=== PATIENT | female | born 1935 | race Caucasian/White ===

== ENCOUNTER 2018-06-16 09:50 | Emergency (ER) | payer OTHER ==
[~2018-06-16] VITALS: Ht 157.5 cm; Wt 49.0 kg
[2018-06-16 10:22] LABS: HEMATOCRIT 34.2 % (37.0-47.0); HEMOGLOBIN 11.4 gm/dL (12.0-15.0); MCHC 33.3 g/dL (28.0-37.0); MCV 93.1 fL (80.0-100.0); PLATELET COUNT 372 thou/uL (150-400); RBC 3.68 mil/uL (4.20-5.00); RDW 13.5 % (10.5-14.5); WBC 9.2 thou/uL (4.0-11.0)
[2018-06-16 10:32] LABS: ANION GAP 9 mmol/L (7-16); BUN 21 mg/dL (7-18); CALCIUM 9.5 mg/dL (8.5-10.1); CHLORIDE 102 mmol/L (98-107); CO2 28 mmol/L (21-32); GLUCOSE 108 mg/dL (74-106); SODIUM 139 mmol/L (136-145)
[2018-06-16 10:42] LABS: ALBUMIN 3.6 g/dL (3.4-5.0); SGOT 20 U/L (15-37); SGPT 18 U/L (30-65); TOTAL BILIRUBIN 0.3 mg/dL (<0.1-1.0); TOTAL PROTEIN 7.2 g/dL (6.4-8.2); TROPONIN-I <0.06 ng/mL (<0.06)
[2018-06-16] MEDS ORDERED: GABAPENTIN 100100 MG PO (10:42)
[2018-06-16] MEDS ORDERED: NORCO 5-325 TA1 EACH PO (10:43)
[2018-06-16] MEDS ORDERED: LOSARTAN POTAS100 MG PO (10:43)
[2018-06-16] MEDS ORDERED: NAMENDA 10 MG T10 MG PO (10:44)
[2018-06-16] MEDS ORDERED: MOBIC7.5 MG PO (10:44)
[2018-06-16] MEDS ORDERED: TYLENOL EXTRA500 MG PO (10:50)
[2018-06-16] MEDS ORDERED: OMEPRAZOLE20 M1 PO (11:39)
[2018-06-16 11:58] VITALS: BP 139/89
--- NOTE | 2018-06-16 18:58 | EKG ---
[address] [place] [address] ELECTROCARDIOGRAM REPORT Name: KEMAL MONTILLA Room #: DEP SILVA Downing#: [id number] ������������������ Admission: 06/16/18 ������������������ Attend Phys: Discharge: 06/16/18 ������������������ Date of : 35 Report #: [id number] ����������������������������������������������������������������� [id number] THIS REPORT FOR: //name// [facility] ED Test Date: 2018-06-16 Test Time: 10:04:05 Pat Name: KEMAL MONTILLA Department: Room: Gender: F Digital Traffic Coordinator: : 1935 Requested By: River Mosley Order Number: [id number] MD: Jadon Bonilla Measurements Intervals [place] Rate: 58 P: 9 NH: 161 QRS: -65 QRSD: 149 T: 33 QT: 464 QTc: 456 Interpretive Statements Sinus rhythm Right bundle branch block LAD Non specific ST/T wave changes No previous ECG available for comparison Electronically Signed On 06-16-2018 18:58:12 CDT by Jadon Bonilla [email or web address] ��������������������������������������������� <ELECTRONICALLY SIGNED> ���������������������������������������� By: Jadon Bonilla MD ��������������������������������������������� 06/16/18 1858 1004 [facility] Jadon Bonilla MD /KATHLEEN
== END 2018-06-16 12:20 | disposition home or self-care (01) ==
LOC: ER 09:50
PROVIDERS: Physician Assistant
DX: R13.10 Dysphagia, unspecified (principal); Z88.6 Allergy status to analgesic agent; Z85.89 Personal history of malignant neoplasm of other organs and systems

== ENCOUNTER 2018-10-17 17:17 | Inpatient (IN) | payer OTHER ==
[~2018-10-17] VITALS: Ht 160 cm; Wt 47.0 kg
--- NOTE | ~2018-10-17 | HC ---
[facility] [place] [address] CONSULTATION Name: KEMAL MONTILLA Room #: 359-P ADM IN M.R.#: [id number] Admission: 10/17/18 Attend Phys: Emily Moran MD Discharge: Date of : 35 Report #: [id number] THIS REPORT FOR: //name// CC: Dayana Moran DATE OF SERVICE: 10/18/2018 HISTORY OF PRESENT ILLNESS: This is an 83-year-old female patient who was seen by me because of facial droop noticed this morning. The is the one who provided history and he indicated that she never had any episodes of TIAs in the past. He thinks the patient has returned back to her baseline. This patient received some epidurals and had some weakness in the legs and that was the reason for admission. There is not any facial weakness now, it came spontaneously and looks like it has resolved spontaneously. REVIEW OF SYSTEMS: Indicates that she has dementia. She follows up at [facility] for that. It is not clear what workup she had. She does not have any short term memory. She needs supervision and somebody needs to be with her all the time. She is admitted with UTI at this time. A 14-point review of system was carried out. It is difficult to carry out because of the patient's dementia. The patient denies any new eye, ENT, cardiac, respiratory, dermatological, hematological, psychiatric, throat, allergic symptom associated with present symptomatology. She does have issues and she does have significant musculoskeletal problems that is mostly in the lumbar spine. PAST MEDICAL HISTORY: Positive for the lumbar spine problem and what looks like advanced dementia. FAMILY HISTORY: Negative for early age stroke. SOCIAL HISTORY: She is and is the one who provided most of the history. PHYSICAL EXAMINATION: Indicate she is alert. She is responsive. She does not know what month it is. Cranial nerve examination 2-12 looks mostly unremarkable. Right facial may be somewhat less as compared to the left side. does not think there is any difference, so if it is, it may be longstanding. Rest of the cranial nerve examinations appears unremarkable. She moves all 4 extremities. She is somewhat weak. Her position sense appeared to be present. Reflexes are diminished. They indicate that she also has a neuropathy. Tone looks symmetrical. There is no clear cerebellar sign. I could not look at the patient's fundus. There is no meningeal sign. Cardiac examinations appear unremarkable. No respiratory difficulty. The patient is [facility] [address] [place] [address] CONSULTATION Name: KEMAL MONTILLA Room #: 359-P [facility] IN [facility].#: [id number] Admission: 10/17/18 Attend Phys: Emily Moran MD Discharge: Date of : 35 Report #: [id number] very thin. No thyroid mass was noticed. Blood pressure is 146/83, respirations 19, pulse is 55. LABORATORY DATA: Indicate a white count of 7.3. Sodium is normal. IMPRESSION: The patient with history of facial droop, which appeared to be better, and according to the , the patient is her baseline. She probably has some encephalopathy because of urinary tract infection in addition to dementia. I discussed with the patient that we will work up for TIA and we will start the patient on aspirin. We will check a cholesterol, and we will see if we need to do anything else. Patient's wants to follow this plan. Dr. Dent will follow up this patient with you from tomorrow. By: 1824 0225 Slim Cunningham MD /nt
[~2018-10-17 17:17] MED LIST: GABAPENTIN 100100 MG PO; LOSARTAN POTAS100 MG PO; MOBIC7.5 MG PO; NAMENDA 10 MG T10 MG PO; NORCO 5-325 TA1 EACH PO; OMEPRAZOLE20 M1 PO; TYLENOL EXTRA500 MG PO
[2018-10-17 17:20] VITALS: BP 148/77
[2018-10-17 18:25] LABS: URINE BILIRUBIN NEGATIVE (Negative); URINE BLOOD TRACE (Negative); URINE CLARITY HAZY; URINE COLOR YELLOW; URINE GLUCOSE-RANDOM* NEGATIVE (Negative); URINE KETONES NEGATIVE (Negative); URINE LEUKOCYTES-REFLEX 3+ (Negative); URINE NITRITE-REFLEX NEGATIVE (Negative); URINE PROTEIN (DIPSTICK) NEGATIVE (Negative); URINE SPECIFIC GRAVITY <= 1.005 (1.005-1.035); URINE UROBILINOGEN 0.2 E.U./dl (0.2-1.0)
[2018-10-17 18:30] LABS: SQUAMOUS 4-10 Moderate /LPF (0-3)
[2018-10-17 18:31] LABS: URINE WBC-REFLEX >25 Many /HPF (0-5)
[2018-10-17 18:32] LABS: BACTERIA-REFLEX >30 Many /HPF (None Seen); RENAL EPITHELIAL CELLS 0-3 Few /LPF (None Seen); TRANSITIONAL EPITHEL CELL 0-3 Few /LPF (None Seen); WBC CLUMPS Few (None Seen)
[2018-10-17 18:33] LABS: CASTS None Seen /LPF (None Seen); CRYSTALS None Seen /LPF (None Seen); URINE RBC 0-2 Rare /HPF (0-2)
[2018-10-17 18:57] LABS: ABSOLUTE NEUTROPHILS 5.4 thou/uL (1.4-8.2); BASOPHILS 0.7 % (0.0-2.0); EOSINOPHILS 0.5 % (0.0-3.0); HEMOGLOBIN 11.7 gm/dL (12.0-15.0); LYMPHOCYTES 14.3 % (24.0-44.0); MCH 32.7 pg (26.0-34.0); MCHC 34.4 g/dL (28.0-37.0); MCV 95.2 fL (80.0-100.0); MONOCYTES 9.8 % (1.0-8.0); PLATELET COUNT 240 thou/uL (150-400); POLYS 74.7 % (36.0-66.0); RBC 3.57 mil/uL (4.20-5.00); RDW 13.5 % (10.5-14.5); WBC 7.3 thou/uL (4.0-11.0)
[2018-10-17 19:04] LABS: ANION GAP 6 mmol/L (7-16); BUN 24 mg/dL (7-18); CALCIUM 9.6 mg/dL (8.5-10.1); CHLORIDE 99 mmol/L (98-107); CO2 30 mmol/L (21-32); CREATININE 0.9 mg/dL (0.6-1.0); GLUCOSE 99 mg/dL (74-106); POTASSIUM 3.7 mmol/L (3.5-5.1); SODIUM 135 mmol/L (136-145)
[2018-10-17 19:23] LABS: TROPONIN-I <0.06 ng/mL (<0.06)
[2018-10-17] MEDS ORDERED: NORCO 5-325 TA1 EAC1 PO (20:54)
[2018-10-17] MEDS ORDERED: IRON325 PO (20:55)
[2018-10-17 21:45] VITALS: BP 140/76
[2018-10-17 21:59] VITALS: BP 158/74
[2018-10-17 22:29] VITALS: BP 151/71
[2018-10-18 03:30] VITALS: BP 167/73
--- NOTE | 2018-10-18 06:01 | NUR ---
RECEIVED REPORT FROM JOHN ED RN.PT ARRIVED TO ROOM 463 ACCOMPANIED BY HER AROUND 2215.PT ALERT,CONFUSED AND WEAK BUT ABLE TO ANSWER SOME QUESTIONS.DENIES PAIN AND SOB.PLACED ON PUREWICK EXTERNAL CATHETER.VOIDED. DENIES ANY NEEDS AT THIS TIME. IS IN THE ROOM WITH THE PT.WILL MONITOR AND CONTINUE POC.
[2018-10-18 07:22] LABS: CALCIUM 8.9 mg/dL (8.5-10.1); CREATININE 0.9 mg/dL (0.6-1.0); POTASSIUM 3.7 mmol/L (3.5-5.1)
[2018-10-18 08:00] VITALS: BP 138/66
--- NOTE | 2018-10-18 13:46 | NUR ---
PT A&O TO SELF, VSS, CHRONIC PAIN IN BACK, USING FACES SCALE TO RATE. PATIENT HAS AT BEDSIDE. PATIENT HAS SLIGHT RIGHT SIDED WEAKNESS, FACIAL DROOPING AND DROOLING. WHEN PATIENT SMILES FACE IS SYMMETRICAL. DR IS AWARE AND PATIENT BEING TRANSFERED TO , WHERE SHE WILL HAVE TELE MOITORING. AN ORDER ALSO HAS BEEN GIVEN FOR CT SCAN OF HEAD. ALL BELONGINGS SENT DOWN TO . NO SIGNS OF DISTRESS.
[2018-10-18 15:28] VITALS: BP 146/83
[2018-10-18 15:54] VITALS: BP 146/83
--- NOTE | 2018-10-18 17:00 | NUR ---
pt's assesment has done, pt come from for R side weak and slight facial droop, pt's head CT done, results show : no acute intractranial abnormality, pt is A&OX2 ( person and place), pt can floow commands, but pt is forgetful, pt's vs are stable at this time, pt denies pain and sob , pt's family stay at pt's bedside.
[2018-10-18 19:35] VITALS: BP 131/71
--- NOTE | 2018-10-19 02:02 | NUR ---
NO NIH ORDERED. CT (-), MRI OF SPINE. COMPLETE NURSING INTERVENTION. BETTYM.
--- NOTE | 2018-10-19 03:08 | NUR ---
PATIENT IS ALERT TO SELF AND SITUATION. NIH IS 2 FOR MINOR FACAL DROOP AND INABILITY TO FOLLOW DIRECTIONS. PATIENT HAS A HX OF DEMENTIA. PATIENT HAD A EPIDURAL BEFORE ADMITION AND CAN DUE TO DIFFICULTY WALKING AND A UTI. PATIENT IS GETTING ANTIBIOTICS. PATIENT IS ROOMAIR. TIMES ONE ASSIST TO BSC. PATIENT IS RESTING COMFORTABLY IN BED. DENIES PAIN. PATIENT IS PROGRESSING TO GOALS. WCM.
[2018-10-19 03:48] VITALS: BP 128/65
[2018-10-19 05:55] LABS: CHOLESTEROL 227 mg/dL (<200); HDL CHOLESTEROL 47 mg/dL (>40); LDL CHOLESTEROL 157 mg/dL (<100); SERUM ASSESSMENT Clear; TC:HDL 4.8 Ratio (Not establshd); TRIGLYCERIDE 118 mg/dL (<150); VLDL 24 mg/dL (<40)
[2018-10-19 06:39] LABS: TSH 3.315 uIU/mL (0.358-3.740)
[2018-10-19 07:24] VITALS: BP 148/74
--- NOTE | 2018-10-19 10:02 | NUR ---
ASSESSMENT: CM REVIEWED CHART AND MET WITH PATIENT AND HER AT THE BEDSIDE. PT WAS ADMITTED WITH UTI/WEAKNESS. PT REPORTS SHE LIVES [place] AN [place] WITH HER AT [facility]. THERE ARE NO STEPS TO ENTER OR ONCE INSIDE. PT REPORTS USING A CANE FOR AMBULATION BUT ALSO HAS A WALKER. PT DENIES HAVING HH IN THE PAST OR BEING TO A SNF. PT REPORTS BEING INDEPENDENT WITH ADLS AND HAS A GRAB BAR AND SHOWER CHAIR. CM DISCUSSED ROLE. PHYSICAL THERAPY IS RECOMMENDING POST ACUTE CARE. 5N HAS BEEN CONSULTED. PT AND ARE INTERESTED IN 5N IF PT QUALIFIES THEIR FIRST CHOICE DISCHARGE PLAN. AWAITING ON INPUT FROM [facility] AT THIS TIME. CM ALSO NOTIFIED BROOKS TINEO FROM [facility] OF PATIENTS ADMISSION. CM WILL CONTINUE TO FOLLOW TO ASSIST NEEDED. NO WEEKEND DISCHARGE ANTICIPATED AT THIS TIME.
[2018-10-19 11:37] VITALS: BP 157/74
--- NOTE | 2018-10-19 14:29 | NUR ---
ASSUMEED CARE OF PT AT 0700 THIS SHIFT. PT HAS BEEN COOPERATIVE, HAS DENIED ANY PAIN THIS SHIFT. HEAD CT SHOWS INFARCT, AND PT HAS SOME RIGHT SIDED WEAKNESS, HOWEVER PT HAS MODERATE STRENGTH. PT HAD REHAB CONSULT, CURRENTLY WAITING ON INSURANCE FOR REHAB APPROVAL. PT IS CURRENTLY RESTING COMFORTABLY IN ROOM. EDUCATION WAS PROVIDED, PT HAS HAD SPOUSE IN ROOM THIS SHIFT. PLAN OF CARE IS TO CONTINUE TO MONITOR CLOSELY AT THIS TIME.
--- NOTE | 2018-10-19 15:12 | NUR ---
AUTHORIZATION FOR ACUTE REHAB STAY SUBMITTED THIS DATE TO PATIENT'S INSURANCE. PATIENT WILL ADMIT TO REHAB WHEN/IF AUTHORIZATION IS RECEIVED. THANK YOU FOR THIS REFERRAL.
[2018-10-19 17:15] VITALS: BP 170/95
--- NOTE | 2018-10-19 17:55 | EKG ---
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 : 1935 Requested By: Anibal Richter Order Number: [id number] MD: Osmra Clifton Measurements Intervals [place] Rate: 52 P: 0 CA: 181 QRS: -59 QRSD: 150 T: 0 QT: 481 QTc: 448 Interpretive Statements Sinus rhythm Right bundle branch block Possible inferior infarct, old Compared to ECG 06/16/2018 10:04:05 No significant change was found Electronically Signed On 10-19-2018 17:55:26 CDT by Osmar Clifton [email or web address] <ELECTRONICALLY SIGNED> By: Osmar Clifton MD, [facility] 10/19/18 1755 1855 54 Osmar Clifton MD, FAC /EPI
[2018-10-19 19:36] VITALS: BP 144/90
[2018-10-20] VITALS (8 sets, daily range): BP systolic 134–160; BP diastolic 77–96
--- NOTE | 2018-10-20 02:26 | NUR ---
patient is alert to self. patient is calm. patient has mild ataxia, right arm weakness. nih 3. patient is sinus jose. patients lbm was the 14th. patient is on antibiotic for uti. patient is pending rehab today. patient deneis pain. patient is room air. patient is resting comfortably in bed wcm. patient is progressing to goals.
--- NOTE | 2018-10-20 16:05 | NUR ---
FALL NOTE: 1. FALL NOT WITNESSED - FOUND PATIENT IN BATHROOM FLOOR. PATIENT STATES CRAWLED FROM BED TO BATHROOM. 2. PATIENT CONFUSED - DEMENTIA 3. NO INJURY 4. MARJARA NOTIFIED 5. NOTIFIED.
--- NOTE | 2018-10-20 20:31 | NUR ---
PATIENT ORIENTED TO SELF AND LOCATION. UNABLE TO REMEMBER YEAR OF . AT BEDSIDE AND PATIENT TEARFUL IF LEAVES. REQUEST TO DISCHARGE WITH PT AND OT TO [facility] SO EASIER TO TRANSITION TO THE RESIDENCE AND CLOSER FOR THE . NOTIFIED CONTACT MANAGER NURSE OF THE HUSBANDS REQUEST. APPARENTLY STILL PENDING INSURANCE APPROVAL FOR [facility], BUT PREFERS TO GET REHAB AT [facility] FOR ABOVE STATED REASON.
[2018-10-21 03:55] VITALS: BP 147/82
--- NOTE | 2018-10-21 04:50 | NUR ---
Progressing towards outcome goals. High fall risks, fall precautions in place. Vital signs and rhythm stable. DC to Rehab pending rehab approval.
[2018-10-21 07:35] VITALS: BP 149/89
[2018-10-21] MEDS ORDERED: LIPITOR40 MG PO (09:52)
[2018-10-21] MEDS ORDERED: ASPIR 8181 MG PO (09:53)
[2018-10-21 11:47] VITALS: BP 151/79
[2018-10-21 15:17] VITALS: BP 160/88
--- NOTE | 2018-10-21 17:08 | NUR ---
ASSUMED CARE AT SHIFT CHANGE, ALERT TO SELF AND FORGETFUL. BP IN 161-141/79-89. PATIEN DENIES ANY DISCOMFORT AT THIS TIME. PREGRESSING TWARDS GOALS AND TRISTAN CONTNUE WITH POC.
[2018-10-21 20:15] VITALS: BP 174/91
--- NOTE | 2018-10-22 05:26 | NUR ---
pt resting quietly with spouse at bedside offering support, vss, prn pain med scheduled, remains alert to self, ra with sat 96%, will con't to monitor per ppoc.
[2018-10-22 05:46] VITALS: BP 146/79
[2018-10-22 07:44] VITALS: BP 157/88
[2018-10-22] MEDS ORDERED: CEFUROXIME250 MG PO (09:01)
[2018-10-22 11:29] VITALS: BP 154/89
--- NOTE | 2018-10-22 15:09 | NUR ---
ASSUMED PATIENT CARE AT 0700. A/0 TO SELF. RIGHT SIDE WEAKNESS. UP WITH ASSISTED TO [facility]. DC TO [facility].
== END 2018-10-22 15:11 | DRG 64 ==
LOC: ER 17:17 → EROBS 19:53 → 4W 19:53 → 3W 19:53 → 4W 22:07 → 3W 10-18 14:19
PROVIDERS: Emergency Medicine; Nurse Practitioner Family; Psychiatry & Neurology Neuromuscular Medicine; ADMIT Internal Medicine
DX: I63.9 Cerebral infarction, unspecified (principal); G92 Toxic encephalopathy; N39.0 Urinary tract infection, site not specified; E44.0 Moderate protein-calorie malnutrition; Z68.1 Body mass index [BMI] 19.9 or less, adult; G81.91 Hemiplegia, unspecified affecting right dominant side; M62.84 Sarcopenia; M48.061 Spinal stenosis, lumbar region without neurogenic claudication; R29.810 Facial weakness; I10 Essential (primary) hypertension; D64.9 Anemia, unspecified; G62.9 Polyneuropathy, unspecified; F03.90 Unspecified dementia, unspecified severity, without behavioral disturbance, psychotic disturbance, mood disturbance, and anxiety; M53.80 Other specified dorsopathies, site unspecified; Z87.891 Personal history of nicotine dependence; Z79.899 Other long term (current) drug therapy; Z88.8 Allergy status to other drugs, medicaments and biological substances
CPT/HCPCS: 10040; 10080

== ENCOUNTER 2018-11-15 07:35 | Inpatient (IN) | payer OTHER ==
[~2018-11-15] VITALS: Ht 160 cm; Wt 45.5 kg
[2018-11-15 07:35] VITALS: BP 143/79
[~2018-11-15 07:35] MED LIST changes: +ASPIR 8181 MG PO; +CEFUROXIME250 MG PO; +IRON325 PO; +LIPITOR40 MG PO; +NORCO 5-325 TA1 EAC1 PO
[2018-11-15 08:20] LABS: HEMATOCRIT 26.3 % (37.0-47.0); HEMOGLOBIN 8.8 gm/dL (12.0-15.0); MCH 32.4 pg (26.0-34.0); MCHC 33.5 g/dL (28.0-37.0); MCV 96.5 fL (80.0-100.0); PLATELET COUNT 211 thou/uL (150-400); RBC 2.73 mil/uL (4.20-5.00); RDW 12.9 % (10.5-14.5); WBC 4.3 thou/uL (4.0-11.0)
[2018-11-15 08:32] LABS: ANION GAP 7 mmol/L (7-16); BUN 28 mg/dL (7-18); CALCIUM 8.7 mg/dL (8.5-10.1); CHLORIDE 105 mmol/L (98-107); CO2 28 mmol/L (21-32); GLUCOSE 87 mg/dL (74-106); POTASSIUM 4.2 mmol/L (3.5-5.1); SODIUM 140 mmol/L (136-145)
[2018-11-15 08:40] LABS: APTT 28.5 Seconds (24.5-32.8); PROTIME 10.6 Seconds (9.3-11.4)
[2018-11-15 08:41] LABS: ALBUMIN 2.6 g/dL (3.4-5.0); MAGNESIUM 1.8 mg/dL (1.8-2.4); SGOT 25 U/L (15-37); SGPT 21 U/L (30-65); TOTAL BILIRUBIN < 0.1 mg/dL (<0.1-1.0); TROPONIN-I <0.06 ng/mL (<0.06)
[2018-11-15 08:48] LABS: URINE BILIRUBIN NEGATIVE (Negative); URINE BLOOD NEGATIVE (Negative); URINE CLARITY CLEAR; URINE COLOR YELLOW; URINE GLUCOSE-RANDOM* NEGATIVE (Negative); URINE KETONES NEGATIVE (Negative); URINE LEUKOCYTES-REFLEX NEGATIVE (Negative); URINE NITRITE-REFLEX NEGATIVE (Negative); URINE PROTEIN (DIPSTICK) NEGATIVE (Negative); URINE SPECIFIC GRAVITY <= 1.005 (1.005-1.035); URINE UROBILINOGEN 0.2 E.U./dl (0.2-1.0)
[2018-11-15 08:56] LABS: BARBITURATES Negative (Negative); BENZODIAZEPINES Negative (Negative); COCAINE Negative (Negative); METHADONE Negative (Negative); OPIATES Negative (Negative); PCP Negative (Negative)
--- NOTE | 2018-11-15 09:04 | EKG ---
[facility] [place] [address] ELECTROCARDIOGRAM REPORT Name: KEMAL MONTILLA [facility] [id number] ������������������ Admission: 11/15/18 ������������������ Attend Phys: Discharge: ������������������ Date of : 35 Report #: [id number] ����������������������������������������������������������������� [id number] THIS REPORT FOR: //name// [facility] ED Test Date: 2018-11-15 Test Time: 08:28:58 Pat Name: KEMAL MONTILLA Department: Room: Gender: F Header Dock: : 1935 Requested By: Johnson Youssef Order Number: [id number] MD: Osmar Clifton Measurements Intervals [place] Rate: 60 P: -32 CA: 150 QRS: -69 QRSD: 162 T: 74 QT: 511 QTc: 511 Interpretive Statements Sinus rhythm RBBB and LAFB Compared to ECG 10/17/2018 18:55:58 No significant change was found Electronically Signed On 11-15-2018 9:04:35 CDT by Osmar Clifton [email or web address] ��������������������������������������������� <ELECTRONICALLY SIGNED> ���������������������������������������� By: Osmar Clifton MD, [facility] ��������������������������������������������� 11/15/18903 08 08 Osmar Clifton MD, FACC /EPI
[2018-11-15 09:07] LABS: AMP/METHAMP Negative (Negative)
[2018-11-15 09:51] LABS: ANISOCYTOSIS SLIGHT
[2018-11-15 10:30] VITALS: BP 154/73
--- NOTE | 2018-11-15 10:33 | NUR ---
CALLED GIOVANNY IN CCU AND LET THEM KNOW THAT PT NEEDS A GOLD AND PURPLE TOP AND THAT I WAS UNABLE TO OBTAIN DUE TO PT BEING IN MRI. NURSE IS AWARE.
[2018-11-15 10:45] VITALS: BP 139/68
[2018-11-15 10:51] LABS: % SATURATION 23 % (20-39); IRON 39 ug/dL (50-170); TIBC 168 ug/dL (250-450)
[2018-11-15 11:40] LABS: HEMATOCRIT 31.8 % (37.0-47.0); HEMOGLOBIN 10.7 gm/dL (12.0-15.0)
[2018-11-15] MEDS ORDERED: LIPITOR80 MG PO (16:28)
[2018-11-15] MEDS ORDERED: ASPIRIN325 PO (16:30)
[2018-11-15] MEDS ORDERED: ARICEPT 5 MG TAB5 MG PO (16:31)
--- NOTE | 2018-11-15 17:05 | NUR ---
ASSUMED PT CARE AT APPROXIMATELY 1030. FALL PRECAUTIONS IN PLACE. PT IS INCOMPREHENSABLE AND DROWSY. CAN NOT ACCURATELY ASSESS LOC. PT'S AT BEDSIDE. HAS BEEN ANSWERING QUESTIONS REGAURDING PT'S MED HX. ASSESSMENT CHARTED. PT'S VITAL SIGNS ARE STABLE. PT IS IN NO APPARENT PAIN. PT HAD CT, MRI, AND SCHEDULED FOR EEG TODAY. PT ALSO RECEIVED A SWALLOW STUDY TODAY. PT IS INCONTINENT OF URINE AT TIMES. STARTED FEMALE EXTERNAL CATH BUT PT CONT TO PULL OUT. PT DOES NOT HAVE FEMALE EXTERNAL CATH. WAITING FOR BM TO DO OCCULT TEST- PT HAS NOT HAD A BM TODAY. PT BEDREST CURRENTLY FOR WEAKNESS. PT'S STATES SHE USUALLY USES A WALKER AT HOME. PT TURNED Q2 HOURS. PROVIDING FREQUENT ORIENTATION TO PATIENT.
--- NOTE | 2018-11-15 18:46 | NUR ---
PT IS ALERT TO HERSELF. PT'S EYE OPENING HAS INCREASED. STATES PT'S DEMENTIA BASELINE IS ALERT TO HERSELF. ALSO STATES PT'S VERBAL BASELINE IS VERY CONVERSATIONAL. PT IS STILL INCOMPREHENSABLE AT THIS TIME. WILL CONTINUE TO MONITOR.
[2018-11-15 19:21] VITALS: BP 127/68
[2018-11-15 21:54] VITALS: BP 119/71
[2018-11-15 23:52] VITALS: BP 117/67
--- NOTE | 2018-11-16 03:35 | NUR ---
RECEIVED PT'S CARE AT 1910; PT. ON BED; RESTING WITH EYES CLOSED; SPOUSE AT THE BED SIDE; DURING ASSESSMENT PT. RESTING; SLEEP INTERRUMPTED; ANSWERED BACK AFTER CALLING PT'S NAME; COOPERATIVE; FOLLOW COMMANDS; HS MEDICATION GIVEN; PT'S HR EARLY ON THE NIGHT SR; LATER ON THE NIGHT SB; 143-152s; VS WNL; PT. RESTING; NO C/O SOB; RESPIRATIONS 16; MONITORING; TURNED FROM SIDE TO SIDE THROUGH THE NIGHT; NO NEURO CHANGES NOTICED SINCE FIRST ASSESSMENT; MONITORING; ASSESSMENT CHARGED; FOLLOWING POC; WILL PASS ON REPORT.
[2018-11-16 04:00] VITALS: BP 126/60
[2018-11-16 05:34] LABS: HEMATOCRIT 30.3 % (37.0-47.0); HEMOGLOBIN 10.2 gm/dL (12.0-15.0); MCH 32.5 pg (26.0-34.0); MCHC 33.5 g/dL (28.0-37.0); RBC 3.12 mil/uL (4.20-5.00); RDW 12.9 % (10.5-14.5); WBC 4.2 thou/uL (4.0-11.0)
[2018-11-16 05:52] LABS: CALCIUM 9.2 mg/dL (8.5-10.1); CREATININE 0.8 mg/dL (0.6-1.0); POTASSIUM 3.7 mmol/L (3.5-5.1)
[2018-11-16 08:50] VITALS: BP 160/60
--- NOTE | 2018-11-16 10:09 | NUR ---
CONFUSED, AGRESSIVE. AT BEDSIDE EDUCATED ABOUT FALL PRECAUTIONS; HE INSISTS ON TURNING OFF THE BED ALARM. ASSISTED TO BSC FOR FORMED BM, WHICH PROVED TO BE POSITIVE FOR OCCULT BLOOD. VERY FREQUENT CHECKS D/T FALL RISK. WILL CONTINUE TO MONITOR.
[2018-11-16 15:46] VITALS: BP 160/60
--- NOTE | 2018-11-16 15:55 | NUR ---
Case opened to follow for dc planning. Double Bass Player visited with the pt and spouse at bedside. They live in the [facility] apts at [facility] and she has hh per [facility] for nursing and therapy. She was here last month with a stroke and when to the SNF there for 2 weeks before returning to their apt with HH. She was walking with a rwalker and sba. Spouse takes care of the homemaker services and meals and housekeeping are provided per [facility]. Pt is being seen by therapy. They are recommending another snf stay at this time. Referral faxed to [facility] with request to submit for ins auth as the pt may be dc ready tomorrow. Once the pt is able to dc home they would like to resume services with [facility]. Will follow.
[2018-11-16 16:53] VITALS: BP 178/72
--- NOTE | 2018-11-16 17:27 | NUR ---
FAXED REFERRAL TO [facility] SPOKE WITH DANA IN ADM SHE RECEIVED REFERRAL AND WILL SUBMIT FOR AUTH. DCP TO FOLLOW.
--- NOTE | 2018-11-16 19:34 | NUR ---
ASSUMED CARE AT 1300, SHIFT ASSESSMENT DONE, NPO SINCE LAST NIGHT. WAS SEEN BY SPEECH THERAPHY, GOT AN ORDER FOR A MECHANICAL ALTERED DIET. HOME MEDS WILL HAS BEEN RESUMED. WILL TURN BED ALARM OFF AND GET THE PT UP TO BSC, EDCUATED ABOUT CALLING FOR HELP. HAD A BM TODAY. WILL CONTINUE TO ASSESS AND ASSIST WITH ADLs NEEDED.
[2018-11-16 20:12] VITALS: BP 131/74
--- NOTE | 2018-11-17 04:15 | NUR ---
ASSUMED PT CARE AT 1900. PT AT BEDSIDE. VSS AND PT HAS BEEN SB THROUGHOUT NIGHT. PT NEEDS ASSISTANCE X1 WHEN AMBULATING SHE IS UNSTEADY AND WEAK. PT HAS SLEPT THRU NIGHT. WILL CONTINUE TO MONITOR PER POC.
[2018-11-17 05:20] LABS: HEMATOCRIT 30.2 % (37.0-47.0); HEMOGLOBIN 10.2 gm/dL (12.0-15.0); MCH 32.3 pg (26.0-34.0); MCHC 33.9 g/dL (28.0-37.0); MCV 95.3 fL (80.0-100.0); RBC 3.17 mil/uL (4.20-5.00); RDW 13.1 % (10.5-14.5); WBC 4.7 thou/uL (4.0-11.0)
[2018-11-17 05:40] VITALS: BP 158/62
[2018-11-17 06:11] LABS: TSH 4.554 uIU/mL (0.358-3.740)
[2018-11-17 07:39] VITALS: BP 136/68
--- NOTE | 2018-11-17 11:11 | NUR ---
CALM, COOPERATIVE. AT BEDSIDE. TRANSFERRING TO [facility] TODAY. WILL CONTINUE TO FOLLOW.
[2018-11-17 16:11] VITALS: BP 157/65
--- NOTE | 2018-11-17 16:57 | NUR ---
Pt transferred to unit from 3W aprox 1530. Pt alert and oriented to self. Pt's spouse at bedside. Denies pain. Room air. Fall precautions in place.
--- NOTE | 2018-11-17 17:08 | HC ---
[facility] [place] [address] CONSULTATION Name: KEMAL MONTILLA Room #: 419-P ADM IN M.R.#: [id number] Admission: 11/15/18 ������������������ Attend Phys: Champ Terry MD Discharge: ������������������ Date of : 35 Report #: [id number] THIS REPORT FOR: //name// CC: Champ Dumont DATE OF SERVICE: 11/15/2018 HISTORY OF PRESENT ILLNESS: This is an 83-year-old female patient who was seen by me for possibility of stroke. I had seen this patient recently and she did have a stroke. The last seen well was yesterday, but this morning she came and her speech was markedly altered. It is always difficult in this patient to tell because this patient has an underlying dementia. The is with her and I have talked to the in the past and talked to them again today. REVIEW OF SYSTEMS: A 14-point review of systems is positive for low hemoglobin and it looks like pretty advanced dementia. She had some epidurals in the past. She had some endometrial carcinoma and hysterectomy. This was her relevant 14-point review of system. PAST MEDICAL HISTORY: Positive for documented stroke on MRI. She also has advanced dementia. FAMILY HISTORY: Negative for any early age stroke. SOCIAL HISTORY: The patient is and the is the one who provided most of the history. PHYSICAL EXAMINATION: Limited. The patient's speech does look dysarthric. She does not cooperate with rest of the examination. She does not know what month and what date it is, but speech does look significantly dysarthric. There does not appear to be any additional focal neurological deficit. Cardiac examinations appear noncontributory. Respiratory examinations appear unremarkable. Blood pressure is 139/68, respiration is 20, pulse is 68. LABORATORY DATA: Hemoglobin is fluctuating 8.8 or 10.7. Her cholesterol is markedly abnormal last month. I did get a stat MRI done. That does not show any acute stroke. I talked to the Emergency Room physician and I had recommended checking her BUN and creatinine and if they are okay, getting the patient's CT angio, which they were going to do. I had suggested giving some fluids. CT angio does not show any abnormality. [facility] [address] [place] [address] CONSULTATION Name: KEMAL MONTILLA Room #: 419-P ADM IN .R.#: [id number] Admission: 11/15/18 ������������������ Attend Phys: Champ Terry MD Discharge: ������������������ Date of : 35 Report #: [id number] IMPRESSION: Difficult to tell in this patient. It does not look like she has a dysarthric speech, but MRI does not show any new stroke. Presently, I will suggest continuing aspirin and Plavix. Overall, prognosis in this patient is very poor. More than 50 minutes of time was spent taking care of this patient today and majority of them was spent counseling and coordinating. ��������������������������������������������� <ELECTRONICALLY SIGNED> ���������������������������������������� By: Slim Cunningham MD ��������������������������������������������� 11/17/18 1708 1459 0029 Slim Cunningham MD /edda
--- NOTE | 2018-11-17 17:09 | EEG ---
[facility] [place] [address] ELECTROENCEPHALOGRAM Name: KEMAL MONTILLA Room #: 419-P ADM IN M.R.#: [id number] ������������������ Admission: 11/15/18 ������������������ Attend Phys: Champ Terry MD Discharge: ������������������ Date of : 35 Report #: [id number] ����������������������������������������������������������������� [id number] THIS REPORT FOR: //name// CC: Champ Dumont DATE OF SERVICE: 11/16/2018 INDICATIONS: This patient is being evaluated for altered mental status and speech difficulty. FINDINGS: EEG was done by placing the electrode by standard 10-20 system of electrode placement. Both referential and sequential montages were used for recording. Background activity does go up to about 8-9 Hz and 30 microvolt. This patient went to sleep that is associated with bilaterally symmetrical sleep spindles and vertex sharp waves. Photic stimulation was unremarkable. Throughout the record, no active epileptiform activity was noticed. IMPRESSION: This patient's EEG is intermixed with slight theta range slowing on both sides. That is a nonspecific abnormality, which can occur with dementia, encephalopathy, effect of psychotropic medication, etc. Clinical correlation is recommended. ���������������������������������������� <ELECTRONICALLY SIGNED> ���������������������������������������� By: Slim Cunningham MD ��������������������������������������������� 11/17/18 1709 1603 1628 Slim Cunningham MD /nt
[2018-11-17 20:05] VITALS: BP 145/67
--- NOTE | 2018-11-18 03:42 | NUR ---
PATIENT ALERT AND ORIENTED TO SELF. UP TO BATHROOM WITH ONE ASSIST AND WALKER. FORGETFUL AND CONFUSED. AT BEDSIDE THROUGHOUT THE NIGHT. DENIES PAIN. BED ALARM ON PATIENT DOES NOT USE CALL LIGHT TO USE THE BATHROOM. TAKES MEDICATION WITH SOME COAXING. SLEPT WELL DURING THE NIGHT. WILL MONITOR.
[2018-11-18 07:31] VITALS: BP 158/74
--- NOTE | 2018-11-18 11:20 | NUR ---
Assumed care of pt at 0700. Pt alert and oriented to self only. SBA with walker to the toilet. Family at bedside. VS stable. Denies pain. Fall precautions in place. Will continue to monitor.
[2018-11-18 16:15] VITALS: BP 119/73
[2018-11-18 19:50] VITALS: BP 136/68
--- NOTE | 2018-11-19 03:19 | NUR ---
ASSUMED CARE OF PT @1900 PT ASSESSED AT START OF SHIFT A&O TO SELF CONFUSED. DENIES PAIN, AT BEDSIDE FOR THE NIGHT. UP WITH ASSITX1 TO THE BATHROOM. TAKES MEDS ONE AT A TIME AND ON ROOM AIR. FALL PREC IN PLACE AND CALL LIGHT WITHIN REACH WILL CONT WITH POC TILL EOS.
[2018-11-19 04:00] VITALS: BP 131/71
[2018-11-19 06:14] LABS: HEMATOCRIT 31.1 % (37.0-47.0); HEMOGLOBIN 10.8 gm/dL (12.0-15.0); MCH 33.1 pg (26.0-34.0); MCHC 34.9 g/dL (28.0-37.0); MCV 94.8 fL (80.0-100.0); RBC 3.27 mil/uL (4.20-5.00); RDW 12.8 % (10.5-14.5); WBC 4.7 thou/uL (4.0-11.0)
[2018-11-19 06:25] LABS: CALCIUM 9.3 mg/dL (8.5-10.1); CREATININE 0.8 mg/dL (0.6-1.0); MAGNESIUM 1.8 mg/dL (1.8-2.4); POTASSIUM 3.7 mmol/L (3.5-5.1)
[2018-11-19 07:10] VITALS: BP 135/70
--- NOTE | 2018-11-19 09:30 | NUR ---
PATIENT AT THIS TIME DOWN FOR MRI OF HEAD WITH HER. PT IS CONFUSED AND FORGETFUL. TOOK AM MEDS AND DRANK SUPPLEMENT.
--- NOTE | 2018-11-19 14:43 | NUR ---
PT RESTING QUIETLY IN BED AT BEDSIDE. PT W/O PAIN OR RESP DISTRESS.
[2018-11-19 15:23] VITALS: BP 136/66
--- NOTE | 2018-11-19 16:14 | NUR ---
PT IS PROGRESSING TOWARD GOAL OF DISHCARGE. PT HAD MRI OF THE HEAD TODAY WHICH WAS NEGATIVE. AWAITING AUTH FOR PT TO DC TO [facility]. CM TO FOLLOW INDICATED WITH DC PLANNING.
[2018-11-19 19:30] VITALS: BP 114/71
--- NOTE | 2018-11-20 03:56 | NUR ---
Assumed pt care at 1900. A/OX2,confused. Up with assist of 1,RW/GB to bathroom,continent of urine this shift. Fall precautions in place. at the bedside for the night.Pt able to make meds PO one at a time without problems. Resting quietly at this time with no distress noted. Will continue to monitor pt.
[2018-11-20 08:04] VITALS: BP 134/82
--- NOTE | 2018-11-20 13:30 | NUR ---
PT A&OX2, AMVBULATES WITH ASSISTX1, WALKER AND GAIT BELT. IV INTACT IN R UA. [place]. SPOUSE IS AT THE BEDSIDE. ENIES ANY PAIN AT THIS TIME.PLANS ARE FOR PT TO GO TO REHAB PENDING INSURANCE AUTH. [facility] POC.
[2018-11-20 16:01] VITALS: BP 126/75
--- NOTE | 2018-11-20 16:14 | NUR ---
ROSETTA WAS RECIEVED FOR PT TO DC TO [facility] THIS DAY. WHEELCHAIR VAN TRANSPORT IS ARRANGED FOR 1729. REPORT TO BE CALLED TO . PT AND SPOUSE ARE AWARE AND AGREEABLE. CHART COPY MADE. ORDERES TO BE FAXED. NO OTHER CM INTERVENTION INDICATED. CASE CLOSED.
--- NOTE | 2018-11-20 18:42 | NUR ---
DC ORDERS RECEIVED. IV REMOVED FROM [facility], REPORT CALLED TO [facility]. SPOUSE INSISTED ON TRANPORTING PT HIMSELF.
== END 2018-11-20 16:49 | DRG 64 ==
LOC: ER 07:35 → 2N 10:43 → EROBS 10:43 → 4E 10:43 → 2N 10:44 → 4E 11-17 15:55
PROVIDERS: Emergency Medicine; Internal Medicine; Internal Medicine Gastroenterology; Nurse Practitioner; Psychiatry & Neurology Neurology; ADMIT Hospitalist
DX: I63.9 Cerebral infarction, unspecified (principal); G93.41 Metabolic encephalopathy; E46 Unspecified protein-calorie malnutrition; Z68.1 Body mass index [BMI] 19.9 or less, adult; I10 Essential (primary) hypertension; D64.9 Anemia, unspecified; F03.90 Unspecified dementia, unspecified severity, without behavioral disturbance, psychotic disturbance, mood disturbance, and anxiety; E03.9 Hypothyroidism, unspecified; R29.6 Repeated falls; Z88.8 Allergy status to other drugs, medicaments and biological substances; Z90.710 Acquired absence of both cervix and uterus; Z82.0 Family history of epilepsy and other diseases of the nervous system; Z87.891 Personal history of nicotine dependence
CPT/HCPCS: 10081; 10084

== ENCOUNTER → 2019-01-09 | Outpatient (CLI) | payer OTHER ==
[~2019-01-09] VITALS: Ht 160 cm; Wt 46.7 kg
[~2019-01-09] MED LIST changes: +ARICEPT 5 MG TAB5 MG PO; +ASPIRIN325 PO; +COQ-10100 MG PO; +LIPITOR80 MG PO; +PAIN RELIEF500 M1 PO; +VITAMIN D3400 UNI2 PO
[2019-01-09 13:05] VITALS: BP 142/70
--- NOTE | 2019-01-09 13:08 | NUR ---
Pain Clinic Assessment: 1. History of Osteoarthritis: SPINE History of Rheumatoid Arthritis: Not Applicable 2. Height: 5 ft. 3 in. 160.0 cm. Weight: 103.0 lb. oz. 46.720 kg. Patient's BMI: 18.3 3. Vital Signs: BP: 142/70 Pulse: 62 Resp: 18 Temp: 02 Sat: 98 ECG Mon: 4. Pain Intensity: 3 5. Fall Risk: Dizziness: N Needs help standing or walking: N Fallen in the last 3 months: N Fall risk comments: 6. Patient on Blood Thinner: None 7. History of Hypertension: Y 8. Opioid Therapy greater than 6 weeks: Y Opiate Contract Signed: 9. Risk Assessment Tool Provided: low-0 10. Functional Assessment Tool: 11. Recreational Drug Use: Never Drug Type: Tobacco Use: Never Smoker Tobacco Type: Amount or Packs/day: How Many Years: Alcohol Use: Yes Frequency: Monthly Quant: 1
--- NOTE | 2019-01-17 11:13 | HPC ---
[facility] [place] [address] PAIN MANAGEMENT CONSULTATION Name: KEMAL MONTILLA Room #: REG PROSPER [place]#: [id number] Admission: 01/09/19 Attend Phys: Flavia Lovell MD Discharge: Date of : 35 Report #: [id number] THIS REPORT FOR: //name// CC: Dayana Lovell DATE OF SERVICE: 01/09/2019 CHIEF COMPLAINT: Low back pain. HISTORY: The patient is an 83-year-old female who has been referred to the pain clinic for evaluation of low back pain. The patient has had some chronic pain problems since 2016. She describes it as a throbbing discomfort with some tenderness, gnawing and steady. Rates it as a 3/10 today. It is exacerbated with certain activities. She has had epidural steroid injections and gleaned benefits from them. The patient states that she had been diagnosed with a cyst on her spine and arthritis in the past. She describes it as gnawing, tender. She has been suffering some onset of Alzheimer's disease. She has received epidural steroid injections and they have been beneficial. At this juncture, they would like to seek treatment at the [facility]. It is closer than the [facility] where she has been getting the injections performed in the past. ALLERGIES: DIPHENHYDRAMINE HAS CAUSED HALLUCINATIONS. CURRENT MEDICATIONS: Tylenol 500 mg, aspirin, Lipitor 80 mg, Aricept 5 mg, vitamin D2, iron, gabapentin 100 mg, [place] 5/325 p.r.n., losartan 100 mg, Namenda 10 mg. PAST MEDICAL HISTORY: Alzheimer's disease, TIA, eczema, hypercholesterolemia, hypertension, chronic low back pain with sciatica, polyneuropathy. PAST SURGICAL HISTORY: History of ovarian cyst removal, total abdominal hysterectomy and bilateral salpingo-oophorectomy, tonsillectomy. Endometrial cancer -- hysterectomy 2006. 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 REVIEW OF SYSTEMS: Generally good health, constipation, blood in the stool, stroke. LABORATORY DATA: MRI of the lumbar spine dated 10/18/2018: 1. L2-L3, there is no significant disk bulging. The central spinal canal is not grossly narrowed. There is no significant neural foraminal stenosis. 2. L3-L4, there is mild bilateral bulging. Mildly tapering the neural foramen. [address] [address] PAIN MANAGEMENT CONSULTATION Name: KEMAL MONTILLA Room #: REG CLI [facility]#: [id number] Admission: 01/09/19 Attend Phys: Flavia Lovell MD Discharge: Date of : 35 Report #: [id number] The central spinal canal is not grossly narrowed. 3. L4-L5, there is a disk osteophyte complex. There is hypertrophy of the facet arthropathy and hypertrophy of the ligamentum flavum. The descending L5 nerve roots are mildly impinged against the facets. The central spinal canal is not markedly narrowed. The disk osteophyte and facet osteophytes resulting in moderate bilateral neural foraminal narrowing, greater on the left. 4. L5-S1, there is a left paracentral disk osteophyte complex. There is hypertrophy of the facets with arthropathy. The left L5-S1 nerve root is mildly impinged against the facet. The central spinal canal is not grossly narrowed. [id number] narrowing of the right neural foramen and severe narrowing of the left neural foramen. PAIN CLINIC ASSESSMENT AND PQRS: 1. History of osteoarthritis. 2. Arthritic changes in the spine. The patient is not being treated for rheumatoid arthritis. 3. Height 5 feet 3 inches, weight 103 pounds, BMI is 18, room air saturation is 98%. 4. Vital signs: Again, the blood pressure was 142/70, pulse of 62 and respiratory rate was 18. 5. Pain intensity is 3/10. 6. Fall history: The patient has not fallen in the last 3 months. 7. Blood thinner. The patient is not on a blood thinning medication. 8. Hypertension. The patient is being treated for hypertension. 9. Opioids greater than 6 weeks. The patient receives medication from one source, her primary physician. 10. Risk assessment tool, low for opioid use. 11. Functional assessment tool, . 12. Recreational drug use: The patient denies. 13. Tobacco: The patient denies. 14. Alcohol: The patient drinks maybe 1 alcoholic beverage monthly. PHYSICAL EXAMINATION: GENERAL: The patient is a well-developed, well-nourished white female. Appears her stated age. She is alert and oriented to self. Her is available and provides all information. HEENT: Normocephalic, atraumatic. Extraocular eye muscles intact. NECK: Without adenopathy or JVD. MUSCULOSKELETAL: The patient is in a wheelchair. Upper extremity muscle strength judged to be 4+/5 for the major muscle groups of the upper extremity. The patient has pain in the lower back area and has pain in the L5-S1 dermatomal distribution per her 's report. RECOMMENDATIONS: At this juncture, they have come to the pain clinic to be informed on what the options are. We have explained the risks and benefits of an epidural steroid injection. At this juncture, they would like to return to [facility] [address] [place] [address] PAIN MANAGEMENT CONSULTATION Name: KEMAL MONTILLA Room #: REG PROSPER [place]#: [id number] Admission: 01/09/19 Attend Phys: Flavia Lovell MD Discharge: Date of : 35 Report #: [id number] the Pain Clinic in the near future if her pain becomes problematic and requires an injection. Questions were sought and answered. We would like to thank you for letting us participate in her care. We hope she continues to improve. <ELECTRONICALLY SIGNED> By: Flavia Lovell MD 01/17/19 1113 0015 0705 Flavia Lovell MD /PMT
== END ==
LOC: PAIN 06:59
DX: M54.5 Low back pain (principal); G89.29 Other chronic pain; M19.90 Unspecified osteoarthritis, unspecified site; I10 Essential (primary) hypertension; G30.9 Alzheimer's disease, unspecified; E78.00 Pure hypercholesterolemia, unspecified; F02.80 Dementia in other diseases classified elsewhere, unspecified severity, without behavioral disturbance, psychotic disturbance, mood disturbance, and anxiety; Z86.73 Personal history of transient ischemic attack (TIA), and cerebral infarction without residual deficits; Z79.891 Long term (current) use of opiate analgesic; Z79.899 Other long term (current) drug therapy

== ENCOUNTER → 2019-02-08 | Outpatient (CLI) | payer OTHER ==
[~2019-02-08] VITALS: Ht 160 cm; Wt 47.6 kg
[2019-02-08 13:06] VITALS: BP 146/79
--- NOTE | 2019-02-08 13:11 | NUR ---
Pain Clinic Assessment: 1. History of Osteoarthritis: SPINE History of Rheumatoid Arthritis: DENIES 2. Height: 5 ft. 3 in. 160.0 cm. Weight: 105.0 lb. oz. 47.628 kg. Patient's BMI: 18.6 3. Vital Signs: BP: 146/79 Pulse: 61 Resp: 15 Temp: 02 Sat: 97 ECG Mon: 4. Pain Intensity: Unable to Rate 5. Fall Risk: Dizziness: N Needs help standing or walking: Y Fallen in the last 3 months: N Fall risk comments: PT IS CONFUSED. HERE WITH 6. Patient on Blood Thinner: None 7. History of Hypertension: Y 8. Opioid Therapy greater than 6 weeks: N Opiate Contract Signed: 9. Risk Assessment Tool Provided: low-0 10. Functional Assessment Tool: 11. Recreational Drug Use: Never Drug Type: Tobacco Use: Never Smoker Tobacco Type: Amount or Packs/day: How Many Years: Alcohol Use: Yes Frequency: Monthly Quant: WINE
--- NOTE | 2019-02-20 13:08 | HPC ---
[facility] [place] [address] PAIN MANAGEMENT CONSULTATION Name: KEMAL MONTILLA Room #: REG PROSPER [place]#: [id number] Admission: 02/08/19 Attend Phys: Flavia Lovell MD Discharge: Date of : 35 Report #: [id number] THIS REPORT FOR: //name// CC: Dayana Lovell DATE OF SERVICE: 02/08/2019 CHIEF COMPLAINT: Low back pain. HISTORY: The patient is an 83-year-old female who has been seen in the pain clinic. She has returned today for treatment. She desires an epidural steroid injection. Risks and benefits of the procedure were discussed and she agrees to proceed. The patient does have some problems with her memory. Her is her guardian. ALLERGIES: DIPHENHYDRAMINE, HYOSCYAMINE cause hallucinations. CURRENT MEDICATIONS: Tylenol 500 mg, aspirin 81 mg, Lipitor 80 mg, Aricept 5 mg, vitamin D2, iron, gabapentin 100 mg, [place] 5/325, lovastatin 100 mg, Namenda 10 mg. PHYSICAL EXAMINATION: MUSCULOSKELETAL: The patient has pain and discomfort in the low back area. This is in the lumbar area. The patient has a left paracentral disk osteophyte complex. The L5-S1 nerve root is mildly impinged against the facet. Central canal is not grossly narrowed. Moderately severe narrowing of the right neural foramen and severe narrowing of the left neural foramen. IMPRESSION: 1. Lumbar radiculopathy. 2. Alzheimer's disease. RECOMMENDATIONS: We discussed treatment options with the patient and her . Again, they both agree to proceed with an epidural steroid injection. This has been quite beneficial in the past. PROCEDURE NOTE: The patient was taken to the procedure area. She was then assisted in getting on the examination table. Her back was sterilely prepped with a Betadine solution. At the L5-S1 area, 0.25% bupivacaine was infiltrated. Fluoroscopy using anterior, posterior as well as lateral viewing were implemented. A 17-gauge Tuohy with loss of resistance technique was used to gain access to the epidural space. There was no CSF, heme or paresthesia. Total of 80 mg Depo-Medrol, 40 mg triamcinolone and 2 mL of 0.25% bupivacaine was injected. The patient tolerated the procedure well. There were no complications. She remained in the Pain Clinic for an appropriate amount of [address] [address] PAIN MANAGEMENT CONSULTATION Name: KEMAL MONTILLA Room #: REG PROSPER [place]#: [id number] Admission: 02/08/19 Attend Phys: Flavia Lovell MD Discharge: Date of : 35 Report #: [id number] time. Her pain at the time of discharge was 0 out of 10. We would like to thank you for letting us participate in her care. We hope she continues to improve. <ELECTRONICALLY SIGNED> By: Flavia Lovell MD 02/20/19 1308 [id number] 0557 Flavia Lovell MD /edda
== END | disposition home or self-care (01) ==
LOC: PAIN 06:54
DX: M54.16 Radiculopathy, lumbar region (principal); G30.9 Alzheimer's disease, unspecified; F02.80 Dementia in other diseases classified elsewhere, unspecified severity, without behavioral disturbance, psychotic disturbance, mood disturbance, and anxiety; Z88.8 Allergy status to other drugs, medicaments and biological substances; Z79.899 Other long term (current) drug therapy; Z79.82 Long term (current) use of aspirin

== ENCOUNTER 2019-06-25 18:38 | Inpatient (IN) | payer OTHER ==
[~2019-06-25] VITALS: Ht 162.6 cm; Wt 44.5 kg
--- NOTE | ~2019-06-25 | O ---
[facility] [place] [address] [place] [address] OPERATIVE REPORT Name: KEMLA MONTILLA Room #: 435-P [facility] IN M.R.#: [id number] Admission: 06/25/19 Attend Phys: Nikki Stephenson MD Discharge: Date of : 35 Report #: [id number] THIS REPORT FOR: cc: Nikki Stephenson MD,Nikki Oropeza,Henry Linda MD ~ CC: Nikki Stephenson DATE OF SERVICE: 06/26/2019 PREOPERATIVE DIAGNOSIS: Right hip intertrochanteric hip fracture. POSTOPERATIVE DIAGNOSIS: Right hip intertrochanteric hip fracture. PROCEDURE: Right hip intramedullary nail. SURGEON: Dr. Henry Oropeza. DIRECTOR OF PROPERTY MANAGEMENT: Estela Valdez. ANESTHESIA: General. ESTIMATED BLOOD LOSS: Minimal. DRAINS: No drains. TOURNIQUET TIME: Zero. COMPLICATIONS: There were no complications. DESCRIPTION OF PROCEDURE: The patient was brought to the operating room where she was placed under general anesthesia. Once under adequate general anesthesia, she was placed onto the fracture table. The right lower extremity was then placed into traction and a reduction of the fracture was achieved. The right hip was then prepped and draped in sterile manner. Utilizing fluoroscopy for guidance, the guidewire for the trochanteric femoral nail was then placed through a small stab incision utilizing the curved cannulated trocar down the shaft of the femur. A size 11 medium length intramedullary nail was then placed down the shaft of the femur. A separate 2 cm incision was made laterally and placement of the guidewire for the compression nail was then placed in a center-center position in the femoral head utilizing fluoroscopy for guidance. The canal was then opened and a 95 mm nail was placed. This was then locked into place proximally with the locking mechanism through the proximal incision. A separate 1 cm incision was made laterally and the transverse locking screw was then placed. Once complete, the wounds were irrigated copiously and closed with 2-0 Vicryl in subcutaneous tissues and ortiz were used for the skin. The [address] [address] OPERATIVE REPORT Name: KEMAL MONTILLA Room #: 435-P [facility] IN M.R.#: [id number] Admission: 06/25/19 Attend Phys: Nikki Stephenson MD Discharge: Date of : 35 Report #: [id number] wounds were dressed with Xeroform, 4 x 4s, and sterile soft compressive dressing was placed. There were no complications from the procedure. The patient tolerated the procedure well and went to the recovery room without incident. By: 1107 1123 Henry Oropeza MD /nt
[~2019-06-25 18:38] MED LIST changes: +VITAMIN D325 MC5 PO; -VITAMIN D3400 UNI2 PO
[2019-06-25 18:50] VITALS: BP 160/78
[2019-06-25 19:32] LABS: ABSOLUTE NEUTROPHILS 3.1 thou/uL (1.4-8.2); BASOPHILS 0.9 % (0.0-2.0); EOSINOPHILS 8.2 % (0.0-3.0); HEMOGLOBIN 10.4 gm/dL (12.0-15.0); LYMPHOCYTES 21.2 % (24.0-44.0); MCH 32.6 pg (26.0-34.0); MCHC 33.6 g/dL (28.0-37.0); MCV 97.2 fL (80.0-100.0); MONOCYTES 11.8 % (1.0-8.0); PLATELET COUNT 214 thou/uL (150-400); POLYS 57.9 % (36.0-66.0); RBC 3.19 mil/uL (4.20-5.00); RDW 14.2 % (10.5-14.5); WBC 5.4 thou/uL (4.0-11.0)
[2019-06-25 19:37] LABS: CALCIUM 8.9 mg/dL (8.5-10.1); CREATININE 0.9 mg/dL (0.6-1.0); POTASSIUM 4.1 mmol/L (3.5-5.1)
[2019-06-25 19:43] LABS: ALBUMIN 3.4 g/dL (3.4-5.0); TOTAL BILIRUBIN 0.3 mg/dL (<0.1-1.0); TOTAL PROTEIN 6.6 g/dL (6.4-8.2)
[2019-06-25] MEDS ORDERED: GABAPENTIN100 MG PO (21:01)
[2019-06-25] MEDS ORDERED: CO Q-10300 MG PO (21:02)
[2019-06-25 21:09] VITALS: BP 132/66
[2019-06-25 21:40] VITALS: BP 129/71
[2019-06-25 22:00] VITALS: BP 127/70
[2019-06-26] VITALS (7 sets, daily range): BP systolic 100–138; BP diastolic 51–92
--- NOTE | 2019-06-26 02:57 | NUR ---
PT TO UNIT AROUND 2144. ADMISSION HISTORY COMPLETED AND CONSENTS SIGNED WITH OVER THE TELEPHONE. PROVIDER CALLED AND ORDERS RECEIVED. PT CRYING OUT BECAUSE OF SEVERE HIP PAIN, IV MEDICATION GIVEN AND PT FELL ASLEEP. ORTHO TO SEE PATIENT IN MORNING AND SURGERY IS PLANNED FOR TODAY. PT HAS DEMENTIA, ORIENTED TO PERSON ONLY AT THIS TIME. NO CODE. NO DIET ORDER OF RIGHT NOW, WANTS TO WAIT TO SEE WHAT ORTHO SAYS. WOULD LIKE TO BE UPDATED ALONG THE WAY, HIS NUMBER IS IN THE CHART (SANDHYA [phone]). HOME MEDS RESTARTED. PT RESTING AT THIS TIME, WILL CONTINUE TO MONITOR.
--- NOTE | 2019-06-26 08:37 | EKG ---
[facility] [place] [address] [place] [address] ELECTROCARDIOGRAM REPORT Name: KEMAL MONTILLA Room #: 435-P ADM IN M.R.#: [id number] Admission: 06/25/19 Attend Phys: Nikki Stephenson MD Discharge: Date of : 35 Report #: [id number] THIS REPORT FOR: cc: Nikki Stephenson MD, Ammar MD Lundgren,Osmar Sequeira MD [facility] THIS REPORT FOR: //name// [facility] ED Test Date: 2019-06-25 Test Time: 19:21:57 Pat Name: KEMAL MONTILLA Department: Room: [facility] Gender: F General Pediatrician: SHANNAN : 1935 Requested By: Bart Anne Order Number: [id number] MD: Osmar Clifton Measurements Intervals [place] Rate: 56 P: -19 TN: 177 QRS: -75 QRSD: 155 T: 41 QT: 491 QTc: 474 Interpretive Statements Sinus bradycardia RBBB and LAFB Compared to ECG 11/15/2018 08:28:58 No significant changes Electronically Signed On 06-26-2019 8:36:05 CDT by Osmar Clifton [email or web address] <ELECTRONICALLY SIGNED> By: Osmar Clifton MD, [facility] 06/26/19 0836 20 20 Osmar Clifton MD, [facility] /EPI
[2019-06-26 08:48] LABS: HEMATOCRIT 27.8 % (37.0-47.0); HEMOGLOBIN 9.4 gm/dL (12.0-15.0); MCH 33.1 pg (26.0-34.0); MCHC 33.9 g/dL (28.0-37.0); MCV 97.5 fL (80.0-100.0); RBC 2.85 mil/uL (4.20-5.00); RDW 14.1 % (10.5-14.5); WBC 8.3 thou/uL (4.0-11.0)
--- NOTE | 2019-06-26 11:05 | HC ---
[facility] [place] [address] [place] [address] CONSULTATION Name: KEMAL MONTILLA Room #: 435-P ADM IN M.R.#: [id number] Admission: 06/25/19 Attend Phys: Nikki Stephenson MD Discharge: Date of : 35 Report #: [id number] THIS REPORT FOR: cc: Nikki Stephenson MD,Nikki Oropeza,Henry Linda MD ~ CC: Nikki Stephenson DATE OF SERVICE: 06/26/2019 CHIEF COMPLAINT: Right hip fracture. HISTORY OF PRESENT ILLNESS: This is an 84-year-old patient who was transferred from [facility] with a right hip fracture after a fall. Apparently, there was no shortness of breath or syncopal episode. The patient is not a good historian. PAST MEDICAL HISTORY: Significant for hysterectomy and endometrial cancer. MEDICATIONS: Noted on the MAY. ALLERGIES: BENADRYL. SOCIAL HISTORY: Significant for alcohol use. REVIEW OF SYSTEMS: As above. PHYSICAL EXAMINATION: VITAL SIGNS: Blood pressure is 160/78, temperature is 36.6, pulse is 58, respiratory rate is 14. GENERAL: Awake, alert, in no distress. EXTREMITIES: The right lower extremity is shortened and externally rotated, pain with range of motion of the hip. She is neurovascularly intact distally. Good motor to her toes. X-rays of the hip and pelvis note a subtrochanteric fracture of the right femur. LABORATORY STUDIES: Note a hemoglobin of 10.4. IMPRESSION: Right hip subtrochanteric hip fracture. PLAN: Options were discussed at length with the patient. We will proceed with an intramedullary nail of the right femur when we were able. <ELECTRONICALLY SIGNED> By: Henry Oropeza MD 06/26/19 1105 0704 0719 Henry Oropeza MD /nt
--- NOTE | 2019-06-26 11:40 | NUR ---
PT ADMITTED RELATED TO RIGHT HIP FRACTURE. CM REVIEWED CHART AND SPOKE WITH CARE TEAM. CM CALLED AND SPOKE WITH PT'S SPOUSE THIS AM. HE INDICATED THAT HE AND PT RESIDE IN AN INDEPENDENT LIVING APARTMENT AT [facility]. 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 HE INDICATED THAT PT HAD HH IN THE PAST BUT HE COULDN'T RECALL PROVIDER. HE STATED THAT PT HAD ALSO GONE TO HEALTH CENTER AT [facility] FOR POST ACUTE CARE STAY PREVIOUSLY. HE STATED THAT IF NEEDED AFTER SURGERY THAT HE WOULD BE AGREEABLE WITH PT GOING TO [facility] FOR REHAB. CM TO FOLLOW INDICATED WITH DC PLANNING.ORTHO CONSULTED TO DO IM NAILING ONCE ABLE.
[2019-06-27 01:19] LABS: URINE BILIRUBIN NEGATIVE (Negative); URINE BLOOD NEGATIVE (Negative); URINE CLARITY CLEAR; URINE COLOR YELLOW; URINE GLUCOSE-RANDOM* NEGATIVE (Negative); URINE KETONES NEGATIVE (Negative); URINE LEUKOCYTES-REFLEX NEGATIVE (Negative); URINE NITRITE-REFLEX NEGATIVE (Negative); URINE PROTEIN (DIPSTICK) NEGATIVE (Negative); URINE SPECIFIC GRAVITY >= 1.030 (1.005-1.035); URINE UROBILINOGEN 0.2 E.U./dl (0.2-1.0)
[2019-06-27 03:25] VITALS: BP 96/53
--- NOTE | 2019-06-27 04:55 | NUR ---
PT C/O PAIN ON HER R HIP,MANAGED WITH MED.UP TO THE BSC WITH 1 ASSIST AND GAOT BELT.R HIP DRSG C/D/I WITH ICE PACK.PT CONT ON IVF ORDERED.PT REPOSITIONED WHILE IN BED.FALL PRECAUTIONS IN PLACE,CALL LIGHT WITHIN REACH.
--- NOTE | 2019-06-27 07:11 | H ---
[facility] [place] [address] [place] [address] HISTORY AND PHYSICAL Name: KEMAL MONTILLA Room #: 435-P ADM IN M.R.#: [id number] Admission: 06/25/19 Attend Phys: Nikki Stephenson MD Discharge: Date of : 35 Report #: [id number] THIS REPORT FOR: cc: Nikki Stephenson MD,Nikki Stephenson,Nikki STAFFORD ~ CC: Nikki Stephenson DATE OF SERVICE: 06/26/2019 HISTORY OF PRESENT ILLNESS: The patient is an 84-year-old female who came to the emergency room from [facility] with a fall and complained of hip pain. The patient was found to have an intertrochanteric fracture of the right hip. The patient is unable to provide me with any information because of her advanced dementia. PAST MEDICAL HISTORY: Significant for anemia, previous history of CVA, dysphagia, prerenal azotemia, urinary tract infection, generalized weakness, dysphagia, dementia, lower back pain, previous history of uterine cancer, status post hysterectomy. MEDICATIONS: Reviewed. ALLERGIES: BENADRYL. SOCIAL HISTORY: The patient is living at [facility] living [facility]. FAMILY HISTORY: Noncontributory. REVIEW OF SYSTEMS: Negative besides what was mentioned above. PHYSICAL EXAMINATION: VITAL SIGNS: On arrival to the hospital showed a temperature of 97.8, pulse 58, respiration 14, blood pressure 160/78. Last blood pressure is 138/68. HEAD AND NECK: Unremarkable. NECK: Supple. LUNGS: Clear to auscultation with good air entry bilaterally. CARDIAC: S1, S2, without any murmur or gallop. ABDOMEN: Benign. Bowel sounds were positive. EXTREMITIES: Without any edema. LABORATORY DATA: The patient's 12-lead EKG showed sinus rhythm with right bundle branch block and left anterior fascicular block. The patient's CBC with diff showed white count of 5.4, hemoglobin 10.4, hematocrit 31.0, platelet count 214, neutrophils are 57%. The patient's sodium is 142, potassium 4.1, chloride 105, bicarbonate 31, BUN 29, creatinine 0.9, glucose 152, but this is [address] [address] HISTORY AND PHYSICAL Name: KEMAL MONTILLA Room #: 435-P ADM IN [facility]#: [id number] Admission: 06/25/19 Attend Phys: Nikki Stephenson MD Discharge: Date of : 35 Report #: [id number] nonfasting. The patient's liver function tests were normal. The patient's chest x-ray showed no acute pulmonary process. The patient's x-ray of the right hip showed displaced and slightly angulated fracture of the intertrochanteric right hip. Probable old left medial pubic ramus fracture with callus formation. ASSESSMENT AND PLAN: 1. Status post fall with right hip fracture. 2. Hypertension. 3. Dementia. 4. Previous history of cerebrovascular accident. The patient was admitted to the hospital with the above-mentioned diagnoses. The patient will be evaluated by orthopedist for the surgical intervention. The patient is doing fairly well from medical standpoint. I will clear the patient for going for surgery. I will continue to monitor the patient very closely postoperatively. <ELECTRONICALLY SIGNED> By: Nikki Stephenson MD 06/27/1911 2 0731 Nikki Stephenson MD /nt
[2019-06-27 07:16] VITALS: BP 106/83
--- NOTE | 2019-06-27 11:12 | NUR ---
Assumed care of pt at 0700. Pt alert but forgetful. Pain pain meds administered fro comfort. Pt worked with PT and able to go to chair. Dressing c/d/i. IVF infusing. Tolerated diet well. Call light within reach. Fall precautions in place. Will continue to monitor.
--- NOTE | 2019-06-27 12:06 | NUR ---
ON-GOING ASSESSMENT: CM REVIEWED CHART. PT IS S/P IM NAIL FIXATION AND HAS BEGUN WORKING WITH THERAPY. PT IS RECOMMENDING POST ACUTE CARE. CM SPOKE WITH PATIENT WHO HAS POOR MEMORY AND SHE IS STATING SHE WOULD PREFER TO GO TO HER APT BUT UNDERSTAND SHE MAY NEED REHAB AND WANTS TO DISCUSS WITH HER . CM SPOKE WITH PATIENTS AN RELAYED RECOMMENDATIONS FOR POST ACUTE CARE. HE STATES HE HAS A MEETING WITH THE HEALTH CENTER AT [facility] TODAY TO DISCUSS THEIR OPTIONS SINCE THEY LIVE IN [place]. HE IS AGREEABLE WITH REFERRAL TO [facility]. CM NOTIFIED SELLING SPECIALIST TO PLEASE SEND REFERRAL TO SNF. CM WILL CONTINUE TO FOLLOW TO ASSIST NEEDED.
--- NOTE | 2019-06-27 13:45 | NUR ---
[facility] RECEIVED CONFIRMATION AND LET MSG WITH DANA IN ADM. DP TO FOLLOW.
[2019-06-27 19:05] VITALS: BP 119/65
[2019-06-28 03:37] VITALS: BP 110/71
[2019-06-28 06:11] LABS: HEMATOCRIT 20.7 % (37.0-47.0); MCH 33.3 pg (26.0-34.0); MCHC 34.4 g/dL (28.0-37.0); MCV 96.5 fL (80.0-100.0); PLATELET COUNT 208 thou/uL (150-400); RBC 2.14 mil/uL (4.20-5.00); RDW 14.3 % (10.5-14.5)
[2019-06-28 06:16] LABS: HEMOGLOBIN 7.1 gm/dL (12.0-15.0)
[2019-06-28 06:26] LABS: CALCIUM 8.4 mg/dL (8.5-10.1); CREATININE 0.9 mg/dL (0.6-1.0); POTASSIUM 4.6 mmol/L (3.5-5.1)
[2019-06-28 07:30] VITALS: BP 114/77
--- NOTE | 2019-06-28 07:48 | NUR ---
PT C/O PAIN ON HER HIP,MAANGED WITH MED.PT RESTLESS AND CONFUSED THIS AM,TOOK THE DRSG ON HER R HIP OUT,REPLACED X2 BUT PT STILL TOOK IT OFF AGAIN.PT WAS ALSO OBSERVED PICKING ON THE SKIN AROUND HER IV SITE IN AN ATTEOT TO REMOVE HER IV,AREA BRUISED.LAB CALLED [facility] OF 7.1 THIS AM,DR CLIFFORD NOTIFIED,ORDER NOTED TO TRANSFUSE BLOOD THIS AM,PT'S NOTIFIED,CONSENT RECEIVED OVER THE PHONE,WITNESSED BT TWO NURSES.REPORT TO AM NURSE.
[2019-06-28 10:03] LABS: ABSOLUTE NEUTROPHILS 6.9 thou/uL (1.4-8.2); NUCLEATED RBCS 1 /100WBC; PLATELET ESTIMATE NORMAL
--- NOTE | 2019-06-28 13:44 | NUR ---
FAXED REFERRAL TO [facility] SPOKE WITH SONI IN INTAKE SHE CAN ACCEPT AT DC. PT ON SERVICE WITH THEM PRIOR TO ADM. POSS DC TODAY OR TOMORROW.
[2019-06-28 13:46] VITALS: BP 114/77
--- NOTE | 2019-06-28 14:48 | NUR ---
CM FOLLOWED UP WITH PT'S SPOUSE THIS AM HE INDICATED THAT HE HAD SPOKEN WITH THE [facility]ALTH[facility] AT [facility] AND THAT HE WOULD PREFER FOR PT TO RETURN HOME TO THE INDEPENDENT LIVING APARTMENT WITH HIM AND [facility]. REFERRAL SENT TO [facility] AND THEY CAN ACCEPT. MO SPOKE WITH TUSHAR CLIFFORD'S BILLING DEPARTMENT SUPERVISOR AND SHE INDICATED THAT PT MAY BE READY FOR DC TOMORROW. ORDERS WILL NEED TO BE FAXED TO . PT'S SPOUSE WILL NEED TO BE CONTACED TO PROVIDE TRANSPORT.
[2019-06-28 16:16] VITALS: BP 128/87
[2019-06-28 17:27] VITALS: BP 124/60; BP 131/79
[2019-06-28 19:21] VITALS: BP 114/66
--- NOTE | 2019-06-28 19:30 | NUR ---
Assumed care of pt at 0700. Pt confused, restless and impulsive. Refuses type and screen. Provider aware. New orders noted. Blood transfusing at this time. Pt pulls IV out. New IV inserted. Pt pulls right hip dressing off multiple times today. New dressing applied. Toe-touch weight-bearing on RLE. Vitals signs stable. Fall precautions in place. Report given to colby MANCINI.
[2019-06-28 20:59] LABS: HEMATOCRIT 24.6 % (37.0-47.0); HEMOGLOBIN 8.3 gm/dL (12.0-15.0)
[2019-06-29 03:53] VITALS: BP 150/86
--- NOTE | 2019-06-29 04:00 | NUR ---
PT WAS CONFUSED AT THE START OF SHIFT, SOMEWHAT RESTLESS BUT THE NOC WENT BY, PATIENT SEEMS TO BE GETTING TIRED AND FELL ASLEEP IN THE CHAIR THEN LATER ASKED TO BE PUT TO BED.ONE UNIT OF BLOOD INFUSED, # UP TO 8.3.THIS MORNING H[facility] HAD DROPPED AGAIN AND 2ND UNIT OF BLOOD TRANSFUSED. PT IS CALM THIS MORNING. SHE SLEPT WELL. USES BSC FOR URINATION. DID NOT MESS WITH R HIP ELIOT.
[2019-06-29 06:16] LABS: HEMATOCRIT 22.6 % (37.0-47.0); HEMOGLOBIN 7.7 gm/dL (12.0-15.0); MCH 31.9 pg (26.0-34.0); MCV 93.8 fL (80.0-100.0); RBC 2.41 mil/uL (4.20-5.00); RDW 15.6 % (10.5-14.5); WBC 6.6 thou/uL (4.0-11.0)
[2019-06-29 06:31] LABS: ANION GAP < 0 mmol/L (7-16); BUN 22 mg/dL (7-18); CALCIUM 8.2 mg/dL (8.5-10.1); CHLORIDE 115 mmol/L (98-107); CO2 29 mmol/L (21-32); CREATININE 0.7 mg/dL (0.6-1.0); GLUCOSE 99 mg/dL (74-106); SODIUM 140 mmol/L (136-145)
[2019-06-29 07:59] VITALS: BP 118/64; BP 119/62; BP 122/59; BP 122/60
[2019-06-29 12:50] LABS: HEMATOCRIT 29.3 % (37.0-47.0)
[2019-06-29 12:52] LABS: HEMOGLOBIN 10.1 gm/dL (12.0-15.0)
[2019-06-29 15:59] VITALS: BP 100/59
--- NOTE | 2019-06-29 18:23 | NUR ---
Assumed care of pt at 0700. Pt confused and oriented to self only. 1 unit of blood transfused today. H&H ordered after blood infusion. Dressing clean dry intact. Pt calmer today than day before. Prider states pt will stay in the hospital another day. Pt's updated. Fall precautions in place. Will continue to monitor.
[2019-06-29 20:20] VITALS: BP 152/92
--- NOTE | 2019-06-30 02:55 | NUR ---
ASSESSED AT START OF SHIFT PT ALERT TO SELF AND CONFUSED. SLEPT MOST OF THE NIGHT AND GETS UP FROM THE BED WITHOUT CALLING. FALL PREC IN PLACE. UP WITH ASSISTX1 TO [facility]. EVENING MEDS GIVEN. DRESSING IN RT HIP INTACT. WILL CONT WITH POC TILL EOS.
[2019-06-30 04:15] VITALS: BP 164/98
[2019-06-30 07:47] VITALS: BP 133/72
[2019-06-30] MEDS ORDERED: XARELTO10 MG PO (08:08)
[2019-06-30] MEDS ORDERED: HYDROCODON-ACE1 EAC7 PO (08:08)
[2019-06-30] MEDS ORDERED: BISACODYL10 MG RECTAL (08:09)
--- NOTE | 2019-06-30 10:19 | NUR ---
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
== END 2019-06-30 13:22 | disposition home health service (06) | DRG 481 ==
LOC: ER 18:38 → 4S 20:57 → EROBS 20:57 → 4S 21:43
PROVIDERS: Emergency Medicine; Nurse Practitioner Adult Health; ADMIT Internal Medicine
PROC: BQ13ZZZ Fluoroscopy of Right Femur (ICD-10-PCS; principal; 2019-06-26)
PROC: 0QS606Z Reposition Right Upper Femur with Intramedullary Internal Fixation Device, Open Approach (ICD-10-PCS; principal; 2019-06-26)
PROC: 30233N1 Transfusion of Nonautologous Red Blood Cells into Peripheral Vein, Percutaneous Approach (ICD-10-PCS; 2019-06-28)
DX: S72.141A Displaced intertrochanteric fracture of right femur, initial encounter for closed fracture (principal); D62 Acute posthemorrhagic anemia; E44.0 Moderate protein-calorie malnutrition; Z68.1 Body mass index [BMI] 19.9 or less, adult; W01.0XXA Fall on same level from slipping, tripping and stumbling without subsequent striking against object, initial encounter; F03.90 Unspecified dementia, unspecified severity, without behavioral disturbance, psychotic disturbance, mood disturbance, and anxiety; I10 Essential (primary) hypertension; I95.9 Hypotension, unspecified; Y93.89 Activity, other specified; Y92.89 Other specified places as the place of occurrence of the external cause; Y99.8 Other external cause status; Z90.710 Acquired absence of both cervix and uterus; Z79.82 Long term (current) use of aspirin; Z79.899 Other long term (current) drug therapy; Z88.8 Allergy status to other drugs, medicaments and biological substances; Z85.41 Personal history of malignant neoplasm of cervix uteri; Z86.73 Personal history of transient ischemic attack (TIA), and cerebral infarction without residual deficits
CPT/HCPCS: 10100; 10195; 50010; 50101; 50386; 50635; 51412; 51538; 52304; 56524; 57092; 5742; 5743; 57804; 62110; 62900; 70005

== ENCOUNTER → 2019-07-24 | Outpatient (CLI) | payer OTHER ==
[~2019-07-24] VITALS: Ht 160 cm; Wt 45.4 kg
[~2019-07-24] MED LIST changes: +ASA81BEC PO; +BISACODYL10 MG RECTAL; +CO Q-10300 MG PO; +GABAPENTIN100 MG PO; +HYDROCODON-ACE1 EAC7 PO; +XARELTO10 MG PO
[2019-07-24 13:27] VITALS: BP 110/72
--- NOTE | 2019-07-24 13:40 | NUR ---
Pain Clinic Assessment: 1. History of Osteoarthritis: SPINE History of Rheumatoid Arthritis: DENIES 2. Height: 5 ft. 3 in. 160.0 cm. Weight: 100.0 lb. oz. 45.360 kg. Patient's BMI: 17.7 3. Vital Signs: BP: 110/72 Pulse: 83 Resp: 12 Temp: 02 Sat: 97 ECG Mon: 4. Pain Intensity: 3 5. Fall Risk: Dizziness: N Needs help standing or walking: Y Fallen in the last 3 months: Y Fall risk comments: PT IS CONFUSED. HERE WITH 6. Patient on Blood Thinner: None 7. History of Hypertension: Y 8. Opioid Therapy greater than 6 weeks: N Opiate Contract Signed: 9. Risk Assessment Tool Provided: low-0 10. Functional Assessment Tool: 11. Recreational Drug Use: Never Drug Type: Tobacco Use: Never Smoker Tobacco Type: Amount or Packs/day: How Many Years: Alcohol Use: No Frequency: Quant:
--- NOTE | 2019-08-05 09:03 | HPC ---
[facility] [place] [address] PAIN MANAGEMENT CONSULTATION Name: KEMAL MONTILLA Room #: REG [facility]OSPER [place].#: [id number] Admission: 07/24/19 Attend Phys: Flavia Lovell MD Discharge: Date of : 35 Report #: [id number] THIS REPORT FOR: cc: Nikki Stephenson MD,Nikki Lovell,Flavia Ritchie MD ~ CC: Nikki Lovell DATE OF SERVICE: 07/24/2019 CHIEF COMPLAINT: Return of back pain. HISTORY: The patient is an 84-year-old female who has been seen in the pain clinic in the past because of chronic back pain. Epidural steroid injections have proved beneficial. She has noticed some increased pain and discomfort. She rates it as a 3/10. She fell and fractured her hip. She has had an intramuscular nail fixation, this was then June. It was about a month ago. Does note some exacerbation of pain when she is standing, walking as well as sitting. ALLERGIES: BENADRYL, HYOSCYAMINE HAS CAUSED HALLUCINATIONS. CURRENT MEDICATIONS: Tylenol 500 mg, aspirin 81 mg, Lipitor 80 mg, Aricept 5 mg, vitamin D2, iron, gabapentin 100 mg, [place] 5 mg, lovastatin 100 mg, Namenda 10 mg. PAIN CLINIC ASSESSMENT/PQRS: 1. 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 She is not being treated for rheumatoid arthritis. 2. Height 5 feet, 3 inches, weight 100 pounds, BMI 17.7. 3. Vital signs: Blood pressure 110/72, pulse 83, respiratory rate 12, room air saturation 97%. 4. Pain intensity 05/13. 5. Fall history: The patient has not fallen. 6. Blood thinner. The patient is not on a blood thinning medication. 7. Hypertension. The patient is being treated for hypertension. 8. Opioids. The patient occasionally uses some opioid medications. 9. Risk assessment tool, low for opioid use. 10. Functional assessment tool . 11. Recreational drug use. The patient denies. 12. Tobacco: The patient has never smoked. 13. Alcohol. The patient denies use of alcoholic beverages. PHYSICAL EXAMINATION: GENERAL: The patient is a well-developed female. [place] [address] PAIN MANAGEMENT CONSULTATION Name: KEMAL MONTILLA Room #: [facility].#: [id number] Admission: 07/24/19 Attend Phys: Flavia Lovell MD Discharge: Date of : 35 Report #: [id number] is accompanied by her . He and she both provide the information in her history. She does have a history of Alzheimer's disease. She has had a history of TIA. HEENT: Normocephalic, atraumatic. Extraocular eye muscles intact. NECK: Without adenopathy or JVD. The patient is in a wheelchair. EXTREMITIES: Upper extremity muscle strength judged to be 4+/5 for the major muscle groups in the upper extremity. The patient has pain and discomfort in low back area. Generally is in the L5-S1 dermatomal distribution as per her and her 's report. RECOMMENDATIONS: We discussed treatment options with the patient. At this juncture, she has recently undergone surgery. It has been about a month. We explained that steroids can slow down the building of bone. At this juncture, since her pain is a 3/10. I would recommend that we continue with oral medications. Should her pain continue to be problematic and after her hip is adequately healed, we could consider an epidural injection. We also explained to the patient and her that COVID-19 is a pandemic. She would notice a lowering of her immune system with steroids. At this juncture, they feel that given that things are going reasonably okay. They will continue with conservative approach. They will return in the future. We would like to thank you for letting us to participate in her care. We hope she continues to improve. <ELECTRONICALLY SIGNED> By: Flavia Lovell MD 08/05/19 [id number] Flavia Lovell MD /[facility]
== END ==
LOC: PAIN 07:07
DX: M47.819 Spondylosis without myelopathy or radiculopathy, site unspecified (principal); M06.9 Rheumatoid arthritis, unspecified; F11.90 Opioid use, unspecified, uncomplicated; Z88.8 Allergy status to other drugs, medicaments and biological substances

== ENCOUNTER → 2019-11-29 | Outpatient (CLI) | payer OTHER ==
[~2019-11-29] VITALS: Ht 157.5 cm; Wt 43.1 kg
[~2019-11-29] MED LIST changes: +DONEPEZIL HCL 55 M1 PO
--- NOTE | ~2019-11-29 | HPC ---
[facility] [address] [address] PAIN MANAGEMENT CONSULTATION Name: KEMAL MONTILLA Room #: REG PROSPER [place]#: [id number] Admission: 11/29/19 Attend Phys: Flavia Lovell MD Discharge: Date of : 35 Report #: [id number] CC: Nikki Lovell DATE OF SERVICE: 11/29/2019 CHIEF COMPLAINT: Low back and leg pain. HISTORY: The patient is an 84-year-old female who has been followed in the pain clinic because of chronic back pain. She has undergone epidural steroid injections and found them helpful. She returns today because of the pain. She has noticed an increase in discomfort. She fractured her hip 3 months ago. She had an epidural steroid injection last February and felt that it was quite beneficial. She has been unable to do much in the realm of activities because of her fractured hip. She does need assistance. She and her would like to proceed with another injection. ALLERGIES: BENADRYL, HYOSCYAMINE CAUSES HALLUCINATIONS. CURRENT MEDICATIONS: Tylenol 500 mg, aspirin 81 mg, Lipitor 80 mg, Aricept 5 mg, vitamin D2, iron, gabapentin 100 mg, [place] 5 mg, lovastatin 100 mg, Namenda 10 mg. PAIN CLINIC ASSESSMENT/PQRS: 1. The patient has some osteoarthritic changes in her back. She is not being treated for rheumatoid arthritis. 2. Height 5 feet 2 inches, weight 95 pounds, BMI is 17. 3. Vital Signs: Blood pressure 118/53, pulse 76, respiratory rate 18, room air saturation 97%. 4. Pain intensity 2-3/10. 5. Fall history: The patient fell about 3 months ago and fractured her hip. The patient is somewhat confused at times. She is accompanied by her who provides the history. 6. The patient is not on a blood thinning medication. 7. Hypertension: The patient is being treated for hypertension. 8. Opioids greater than 6 weeks: The patient is not being treated with opioids on a regular basis. 9. Risk assessment tool: Low for opioid use. 10. Functional assessment tool . 11. Recreational drug use: The patient denies. 12. Tobacco: The patient has never smoked. 13. Alcohol: The patient denies use of alcohol. PHYSICAL EXAMINATION: GENERAL: The patient is a well-developed female. She is in a wheelchair. Has difficulty ambulating without assistance. Her is quite aware of her history and provides it. The patient does have a history of Alzheimer's disease. Has a history of transient ischemic attacks. HEENT: Normocephalic, atraumatic. The patient has a facial covering on. NECK: Without adenopathy. MUSCULOSKELETAL: The patient complains of pain in the low back area in the usual distribution. IMPRESSION: 1. Lumbar radicular pain. 2. Alzheimer's disease. 3. Hypercholesterolemia. RECOMMENDATIONS: We discussed treatment options with the patient and with her . She has had epidural steroid injections and they have been quite beneficial. At this juncture, her states that she has been complaining of pain and discomfort at times. She does have a short memory. He feels that this juncture would be the appropriate time to proceed with another epidural steroid injection. Past injections have provided quite a bit of relief and the patient has not complained near as much about discomfort. We discussed with him and her the risks and benefits. They include but are not limited to infection, worsening of pain, no improvement in pain, nerve damage, bleeding. Given that the COVID-[address], the patient might have a more difficult time should she become infected during this, given that the steroid medications can decrease one's immune response. They are aware and would like to proceed. PROCEDURE NOTE: The patient was taken to the procedure area. She was then assisted in getting on the examination table. A pillow was placed under the abdomen. Her back was sterilely prepped with a Betadine solution. A 0.25% bupivacaine was infiltrated at the L5-S1 area. There was no CSF, heme or paresthesia. A 17-gauge Tuohy with loss of resistance technique was used to gain access to the epidural space. There was no CSF, heme or paresthesia. Medication was slowly injected. The patient did not complain. She was then taken to the recovery room. She remained in the recovery room for an appropriate amount of time. The steroid solution of 40 mg triamcinolone and 80 mg Depo-Medrol had been slowly infused. The patient will follow up in the near future as needed. Hopefully, her hip will continue to improve. We would like to thank you for letting us participate in her care. We hope she continues to improve. By: [id number] Flavia Lovell MD /[facility]
[2019-11-29 09:50] VITALS: BP 118/53
--- NOTE | 2019-11-29 09:53 | NUR ---
Pain Clinic Assessment: 1. History of Osteoarthritis: SPINE History of Rheumatoid Arthritis: DENIES 2. Height: 5 ft. 2 in. 157.5 cm. Weight: 95.0 lb. oz. 43.092 kg. Patient's BMI: 17.4 3. Vital Signs: BP: 118/53 Pulse: 76 Resp: 18 Temp: 02 Sat: 97 ECG Mon: 4. Pain Intensity: 3 5. Fall Risk: Dizziness: N Needs help standing or walking: Y Fallen in the last 3 months: N Fall risk comments: PT IS CONFUSED. HERE WITH 6. Patient on Blood Thinner: None 7. History of Hypertension: Y 8. Opioid Therapy greater than 6 weeks: N Opiate Contract Signed: 9. Risk Assessment Tool Provided: low-0 10. Functional Assessment Tool: 11. Recreational Drug Use: Never Drug Type: Tobacco Use: Never Smoker Tobacco Type: Amount or Packs/day: How Many Years: Alcohol Use: No Frequency: Quant:
== END | disposition home or self-care (01) ==
LOC: PAIN 06:55
PROVIDERS: ATTEND Anesthesiology Pain Medicine
DX: M54.16 Radiculopathy, lumbar region (principal); G89.29 Other chronic pain; E78.00 Pure hypercholesterolemia, unspecified; G30.9 Alzheimer's disease, unspecified; F02.80 Dementia in other diseases classified elsewhere, unspecified severity, without behavioral disturbance, psychotic disturbance, mood disturbance, and anxiety; Z88.8 Allergy status to other drugs, medicaments and biological substances

== ENCOUNTER → 2020-08-05 | Outpatient (CLI) | payer OTHER ==
[~2020-08-05] VITALS: Ht 154.9 cm; Wt 42.4 kg
[~2020-08-05] MED LIST changes: +NEURONTIN100 MG PO
[2020-08-05 09:34] VITALS: BP 145/75
--- NOTE | 2020-08-05 09:44 | NUR ---
Pain Clinic Assessment: 1. History of Osteoarthritis: SPINE History of Rheumatoid Arthritis: DENIES 2. Height: 5 ft. 1 in. 154.9 cm. Weight: 93.4 lb. oz. 42.366 kg. Patient's BMI: 17.7 3. Vital Signs: BP: 145/75 Pulse: 67 Resp: 14 Temp: 02 Sat: 99 ECG Mon: 4. Pain Intensity: 0 5. Fall Risk: Dizziness: N Needs help standing or walking: Y Fallen in the last 3 months: N Fall risk comments: PT IS CONFUSED. HERE WITH 6. Patient on Blood Thinner: None 7. History of Hypertension: Y 8. Opioid Therapy greater than 6 weeks: N Opiate Contract Signed: 9. Risk Assessment Tool Provided: low-0 10. Functional Assessment Tool: 11. Recreational Drug Use: Never Drug Type: Tobacco Use: Never Smoker Tobacco Type: Amount or Packs/day: How Many Years: Alcohol Use: No Frequency: Quant:
== END | disposition home or self-care (01) ==
LOC: PAIN 07-15 07:10
PROVIDERS: ATTEND Anesthesiology Pain Medicine
DX: M54.16 Radiculopathy, lumbar region (principal); G89.29 Other chronic pain; E78.00 Pure hypercholesterolemia, unspecified; G30.9 Alzheimer's disease, unspecified; F02.80 Dementia in other diseases classified elsewhere, unspecified severity, without behavioral disturbance, psychotic disturbance, mood disturbance, and anxiety; Z98.890 Other specified postprocedural states; Z79.899 Other long term (current) drug therapy; Z90.710 Acquired absence of both cervix and uterus; Z86.73 Personal history of transient ischemic attack (TIA), and cerebral infarction without residual deficits; Z85.42 Personal history of malignant neoplasm of other parts of uterus

== ENCOUNTER → 2021-02-10 | Outpatient (CLI) | payer OTHER ==
[~2021-02-10] VITALS: Ht 154.9 cm; Wt 45.4 kg
[2021-02-10 11:41] VITALS: BP 136/72
--- NOTE | 2021-02-10 11:50 | NUR ---
Pain Clinic Assessment: 1. History of Osteoarthritis: SPINE History of Rheumatoid Arthritis: DENIES 2. Height: 5 ft. 1 in. 154.9 cm. Weight: 100.0 lb. oz. 45.360 kg. Patient's BMI: 18.9 3. Vital Signs: BP: 136/72 Pulse: 67 Resp: 14 Temp: 02 Sat: 98 ECG Mon: 4. Pain Intensity: 0 5. Fall Risk: Dizziness: N Needs help standing or walking: Y Fallen in the last 3 months: N Fall risk comments: PT IS CONFUSED. HERE WITH 6. Patient on Blood Thinner: None 7. History of Hypertension: Y 8. Opioid Therapy greater than 6 weeks: N Opiate Contract Signed: 9. Risk Assessment Tool Provided: low-0 10. Functional Assessment Tool: 11. Recreational Drug Use: Never Drug Type: Tobacco Use: Never Smoker Tobacco Type: Amount or Packs/day: How Many Years: Alcohol Use: No Frequency: Quant:
== END | disposition home or self-care (01) ==
LOC: PAIN 08:24
PROVIDERS: ATTEND Anesthesiology Pain Medicine
DX: M54.16 Radiculopathy, lumbar region (principal); G89.29 Other chronic pain; E78.00 Pure hypercholesterolemia, unspecified; G30.9 Alzheimer's disease, unspecified; F02.80 Dementia in other diseases classified elsewhere, unspecified severity, without behavioral disturbance, psychotic disturbance, mood disturbance, and anxiety; Z86.73 Personal history of transient ischemic attack (TIA), and cerebral infarction without residual deficits; Z85.42 Personal history of malignant neoplasm of other parts of uterus; Z90.711 Acquired absence of uterus with remaining cervical stump; Z98.890 Other specified postprocedural states; Z79.899 Other long term (current) drug therapy; Z88.8 Allergy status to other drugs, medicaments and biological substances